=== PATIENT | female | born 1940 | race Caucasian/White ===

== ENCOUNTER → 2017-09-15 | Outpatient (CLI) | payer OTHER ==
[~2017-09-15] MED LIST: ASPCH81X PO; DVN/160 PO; METO25TA56 PO; MOME100A INH; OXYC10SO PO; SIMV10TA5 PO; [UNRECOGNIZED DRUG - OTHER] PO
--- NOTE | 2017-09-16 05:20 | PAP/PSG TECHNICIAN REPORT ---
[facility] Power Reactor Supervisor Polysomnogram Report Study name: None Report date: 09/16/2017 Study date: 09/15/2017 Referring Physician: Amelia Mariee Name: LISA OCHOA Interpreting Physician: Moises Chapman M.D. Date of : 1940 Power Reactor Supervisor: Kanchan Olmos [facility]. Sex: Female Age: 77 StudyType: PSG Weight: 236 lbs Height: 77 years, Height 5' 4" Neck Circum:16.5inches BMI: 40.5 Medications: Proventil HFA 108mcg/act, ASA 81mg, Excederine Migraine, Azelastine HCl 0.1%nasal spray, Benadryl 25mg, Claritin 10mg, Toprol XL 50mg, Dulera 100-5 mcg/act, Nasonex 50mcg/act, Potassium Chloride ER 10MEQ, Zocor 10mg, Valsartan 320mg Patient History Study started on room air with no ETCO2 monitoring in room #6. 77 yr old female here tonight for a possible split psg if her AHI>15 and she has 2 hours of sleep by 1:30am.She has HTN. She snores but has no witnessed apnea. When she wakes up during the night she has difficulty falling back to sleep. Her Ess=9/24. Neck circ=16.5inches. Parameters Monitored NPSG: E1-M2, E2-M1, Fp1-M2, Fp2-M1, F3-M2, F4-M2, F4-M1, C3-M2, C4-M2, C4-M1, O1-M2, O2-M2, O2-M1, T3-M2, T4-M1, P3-M2, P4-M1, CHIN1, CHIN2, HR, EKG, Legs, PFLOW, SNOR, FLOW, CFLOW, Tidal Volume, THOR, ABDO, SpO2, PLTH, CPRESS, ETCO2 Wave, ETCO2, pH Sleep Architecture Sleep Stages Time at Lights Off 10:27:36 PM STAGES Time (min.) TST (%) Time at Lights On 5:09:06 AM Wake 245.0 -- Total Recording Time (TRT) 395.00 min. N1 22.5 15 Total Sleep Period (TSP) 328.0 min. N2 75.5 50 Total Sleep Time (TST) 150.0min. N3 30.5 20 Awake Time 245.0 min. REM 21.5 14 Wake after Sleep Onset 212.0 min. Sleep Efficiency (SE) 38 % Sleep Onset Latency (OH) 39.5 min. Number of Stage 1 Shifts None Awakenings 27 Stage Changes 103 Number of REM periods 1 REM 21.5 14 REM Latency 299.5 min. NREM 128.5 86 Body Position Analysis Supine Right Left Side Prone Vertical Total Sleep Time (min.) 17.7 114.5 35.5 150.00 0.0 0.0 Total Sleep Time (%) 0% 76% 24% 100 0% N/A% Total Sleep Time REM (min.) 0.0 21.5 0.0 None 0.0 0.0 Total Sleep Time NREM (min.) 0.0 93.0 35.5 None 0.0 0.0 Intermittent Wake (min.) 17.7 149.2 78.1 None 0.0 0.0 Total Sleep Period (%) 0% None None None None None Arousals Myoclonus (PLM) * Events Count Index Events Count Index Spontaneous 8 3 Events Awake (PLMW) 382 93.6 Respiratory 40 18.0 Events Asleep w/ Arousal (PLMA) 13 5.2 PLM 12 5 Events Asleep w/o Arousal (PLMS) 153 61.2 Snoring 5 2 Total Asleep 166 66.4 Total 65 26 Total 548 83 Respiratory Analysis * CA OA MA CH H RERA Total Count 1 41 1 0 82 0 125 Index 0.4 16.4 0.4 0 32.8 0 50.0 Mean Duration 28.7 19.1 25.5 0.00 19.5 0.0 19.5 Longest Duration 28.7 28.6 25.5 0.00 25.5 0.0 50.4 Respiratory Event Summary Total Supine ~Supine Right Left Prone REM NREM Apneas Count 43 N/A 43 30 13 N/A 16 27 Index 17.2 N/A 17 15.7 22.0 N/A 45 13 Hypopneas (4% Desat) Count 82 N/A 82 64 18 N/A 6 76 Index 32.8 N/A 33 33.5 30.4 N/A 16.7 35.5 Apneas & All Hypopneas Count 125 N/A 125 94 31 N/A 22 103 Index 50.0 N/A 50 49 52 N/A 61.4 48.1 Respiratory Events (Hydraulic Chair Assembler+All Hyp+RERA) Count 125 N/A 125 94 31 N/A 22 103 Index 50.0 N/A 50 49.3 52.4 N/A 61.4 48.1 Respiratory Related Arousal Count 40 N/A 45 24 21 N/A 0 45 Index 18.0 N/A 18 13 35 N/A 0 21 Snoring Analysis Supine Right Left Prone REM NREM Total Snore duration 26.4 min Snores count N/A 911 37 N/A 232 716 948 Snore mean duration 1.7 Sec Snores index N/A 477 63 N/A 647.4 334.3 379.2 TST with snoring (%) 17.6% Desaturation Event Summary: Minimum %SpO2 Event Count Mean/Min/Max Duration(sec.) Desaturation Index % Time In Bed > 90 168 26.0 / 5.3 / 59.8 42.4 63.4 86 - 90 71 21.3 / 5.3 / 53.5 36.8 30.8 81 - 85 13 20.4 / 8.5 / 36.5 63.2 3.3 76 - 80 6 17.8 / 11.3 / 26.0 53.4 1.8 71 - 75 0 N/A 0.0 0.7 66 - 70 0 N/A 0.0 0.0 61 - 65 0 N/A 0.0 0.0 56 - 60 0 N/A 0.0 0.0 51 - 55 0 N/A 0.0 0.0 < 50 0 N/A 0.0 0.0 Total REM NREM Awake <50% 0.0 min. 0.0 min. 0.0 min. 0.0 min. 51 - 60% 0.0 min. 0.0 min. 0.0 min. 0.0 min. 61 - 70% 0.1 min. 0.1 min. 0.0 min. 0.0 min. 71 - 80% 9.2 min. 8.8 min. 0.4 min. 0.1 min. 81 - 90% 128.1 min. 10.6 min. 76.8 min. 40.7 min. 91 - 100% 237.9 min. 1.9 min. 51.1 min. 184.9 min. Average 91 82 90 92 Minimum SpO2 70 70 79 75 Desaturation Event Index 31.0 53.0 57.0 15.7 # Desat. Events below 89% 143 19 95 29 Time(%) with Saturation below 89% 19.2 4.7 11.3 3.2 Time(min.) with Saturation below 89% 72.0 17.6 42.5 11.9 Time (mins) REM (mins) NREM (mins) % of TST SpO2 Below 90% 135 19 N116 53.5 SpO2 Below 88% 43 0 0 30 Heart Rate Analysis Min (bpm) Max (bpm) Average (bpm) Awake 45 281 67 NREM 55 75 66 REM 60 78 72 Overall 55 78 67 Supplemental O2 Values Minimum O2 level: None Value Start Time End Time Power Reactor Supervisor Comments Mrs. Ochoa slept in the right and left positions. No cardiac arrhythmia noted. Some leg movements noted. No bruxism noted. Snoring was noted and scored as a 2 on a scale of 1 through 5. (0=no snoring, 5=snoring loud enough to be heard through a closed door or down the cain way). She awoke to use the restroom 2 times during the night. She stated that she slept a little worse than when at home. Coughing woke her up. The final report will be interpreted and signed by a sleep physician. The completed physician report will then be placed in the patient medical record. Therapy (cm H2O) 0 TIB (min.) 395.0 TST (min.) 150.0 Sleep Onset (min.) 39.5 REM Onset From Sleep (min.) 299.5 Sleep Efficiency % 38 Wakefulness (%) 61 Wakefulness (min.) 245.0 NREM 1 (%) 15 NREM 1 (min.) 22.5 NREM 2 (%) 50 NREM 2 (min.) 75.5 NREM 3 (%) 20 NREM 3 (min.) 30.5 REM (%) 14 REM (min.) 21.5 # Arousals 65 Arousal Index 26 # Snore 948 Snore Index 379.2 AHI 50.0 AHI Supine N/A AHI Non-Supine 50 NREM AHI 48.1 REM AHI 61.4 RDI 50.0 # Obstructive Apnea 41 # Central Apnea 1 # Mixed Apnea 1 # Hypopneas 82 RERAs 0 Total Respiratory Events 137 Time Below SpO2 89% (min.) 60.2 Mean NREM SpO2 (%) 90 Mean REM SpO2 (%) 82 Mean Sleep SpO2 (%) 89 Min NREM SpO2 (%) 79 Min REM SpO2 (%) 70 Position Supine (min.) 17.7 Position Non-supine (min.) 150.0 LM Index Sleep 66.4 LM Index NREM 71.4 LM Index REM 36.3 Mean Heart Rate (bpm) 67 Min Heart Rate (bpm) 55
--- NOTE | 2017-09-16 05:27 | PAP/PSG TECHNICIAN REPORT ---
[facility] Licensed Veterinary Technician Polysomnogram Report Study name: None Report date: 09/16/2017 Study date: 09/15/2017 Referring Physician: Amelia Mariee Name: LISA OCHOA Interpreting Physician: Moises Chapman M.D. Date of : 1940 Licensed Veterinary Technician: Kanchan Olmos [facility]. Sex: Female Age: 77 StudyType: PSG Weight: 236 lbs Height: 77 years, Height 5' 4" Neck Circum:16.5inches BMI: 40.5 Medications: Proventil HFA 108mcg/act, ASA 81mg, Excederine Migraine, Azelastine HCl 0.1%nasal spray, Benadryl 25mg, Claritin 10mg, Toprol XL 50mg, Dulera 100-5 mcg/act, Nasonex 50mcg/act, Potassium Chloride ER 10MEQ, Zocor 10mg, Valsartan 320mg Patient History Study started on room air with no ETCO2 monitoring in room #6. 77 yr old female here tonight for a possible split psg if her AHI>15 and she has 2 hours of sleep by 1:30am.She has HTN. She snores but has no witnessed apnea. When she wakes up during the night she has difficulty falling back to sleep. Her Ess=9/24. Neck circ=16.5inches. Parameters Monitored NPSG: E1-M2, E2-M1, Fp1-M2, Fp2-M1, F3-M2, F4-M2, F4-M1, C3-M2, C4-M2, C4-M1, O1-M2, O2-M2, O2-M1, T3-M2, T4-M1, P3-M2, P4-M1, CHIN1, CHIN2, HR, EKG, Legs, PFLOW, SNOR, FLOW, CFLOW, Tidal Volume, THOR, ABDO, SpO2, PLTH, CPRESS, ETCO2 Wave, ETCO2, pH Sleep Architecture Sleep Stages Time at Lights Off 10:27:36 PM STAGES Time (min.) TST (%) Time at Lights On 5:09:06 AM Wake 251.5 -- Total Recording Time (TRT) 401.50 min. N1 22.5 15 Total Sleep Period (TSP) 328.0 min. N2 75.5 50 Total Sleep Time (TST) 150.0min. N3 30.5 20 Awake Time 251.5 min. REM 21.5 14 Wake after Sleep Onset 212.0 min. Sleep Efficiency (SE) 37 % Sleep Onset Latency (OH) 39.5 min. Number of Stage 1 Shifts None Awakenings 27 Stage Changes 102 Number of REM periods 1 REM 21.5 14 REM Latency 299.5 min. NREM 128.5 86 Body Position Analysis Supine Right Left Side Prone Vertical Total Sleep Time (min.) 17.7 114.5 35.5 150.00 0.0 0.0 Total Sleep Time (%) 0% 76% 24% 100 0% N/A% Total Sleep Time REM (min.) 0.0 21.5 0.0 None 0.0 0.0 Total Sleep Time NREM (min.) 0.0 93.0 35.5 None 0.0 0.0 Intermittent Wake (min.) 17.7 155.7 78.1 None 0.0 0.0 Total Sleep Period (%) 0% None None None None None Arousals Myoclonus (PLM) * Events Count Index Events Count Index Spontaneous 8 3 Events Awake (PLMW) 386 92.1 Respiratory 40 18.0 Events Asleep w/ Arousal (PLMA) 13 5.2 PLM 12 5 Events Asleep w/o Arousal (PLMS) 153 61.2 Snoring 5 2 Total Asleep 166 66.4 Total 65 26 Total 552 82 Respiratory Analysis * CA OA MA CH H RERA Total Count 1 41 1 0 82 0 125 Index 0.4 16.4 0.4 0 32.8 0 50.0 Mean Duration 28.7 19.1 25.5 0.00 19.5 0.0 19.5 Longest Duration 28.7 28.6 25.5 0.00 25.5 0.0 50.4 Respiratory Event Summary Total Supine ~Supine Right Left Prone REM NREM Apneas Count 43 N/A 43 30 13 N/A 16 27 Index 17.2 N/A 17 15.7 22.0 N/A 45 13 Hypopneas (4% Desat) Count 82 N/A 82 64 18 N/A 6 76 Index 32.8 N/A 33 33.5 30.4 N/A 16.7 35.5 Apneas & All Hypopneas Count 125 N/A 125 94 31 N/A 22 103 Index 50.0 N/A 50 49 52 N/A 61.4 48.1 Respiratory Events (Autocad Draftsman+All Hyp+RERA) Count 125 N/A 125 94 31 N/A 22 103 Index 50.0 N/A 50 49.3 52.4 N/A 61.4 48.1 Respiratory Related Arousal Count 40 N/A 45 24 21 N/A 0 45 Index 18.0 N/A 18 13 35 N/A 0 21 Snoring Analysis Supine Right Left Prone REM NREM Total Snore duration 26.4 min Snores count N/A 911 37 N/A 232 716 948 Snore mean duration 1.7 Sec Snores index N/A 477 63 N/A 647.4 334.3 379.2 TST with snoring (%) 17.6% Desaturation Event Summary: Minimum %SpO2 Event Count Mean/Min/Max Duration(sec.) Desaturation Index % Time In Bed > 90 168 26.0 / 5.3 / 59.8 41.8 63.7 86 - 90 71 21.3 / 5.3 / 53.5 36.8 30.6 81 - 85 13 20.4 / 8.5 / 36.5 63.2 3.3 76 - 80 6 17.8 / 11.3 / 26.0 53.4 1.8 71 - 75 0 N/A 0.0 0.7 66 - 70 0 N/A 0.0 0.0 61 - 65 0 N/A 0.0 0.0 56 - 60 0 N/A 0.0 0.0 51 - 55 0 N/A 0.0 0.0 < 50 0 N/A 0.0 0.0 Total REM NREM Awake <50% 0.0 min. 0.0 min. 0.0 min. 0.0 min. 51 - 60% 0.0 min. 0.0 min. 0.0 min. 0.0 min. 61 - 70% 0.1 min. 0.1 min. 0.0 min. 0.0 min. 71 - 80% 9.2 min. 8.8 min. 0.4 min. 0.1 min. 81 - 90% 128.1 min. 10.6 min. 76.8 min. 40.7 min. 91 - 100% 241.4 min. 1.9 min. 51.1 min. 188.3 min. Average 91 82 90 92 Minimum SpO2 70 70 79 75 Desaturation Event Index 30.5 53.0 57.0 15.3 # Desat. Events below 89% 143 19 95 29 Time(%) with Saturation below 89% 19.0 4.7 11.2 3.1 Time(min.) with Saturation below 89% 72.0 17.6 42.5 11.9 Time (mins) REM (mins) NREM (mins) % of TST SpO2 Below 90% 135 19 N116 53.5 SpO2 Below 88% 43 0 0 30 Heart Rate Analysis Min (bpm) Max (bpm) Average (bpm) Awake 45 281 67 NREM 55 75 66 REM 60 78 72 Overall 55 78 67 Supplemental O2 Values Minimum O2 level: None Value Start Time End Time Licensed Veterinary Technician Comments Mrs. Ochoa slept in the right and left positions. No cardiac arrhythmia noted. Some leg movements noted. No bruxism noted. Snoring was noted and scored as a 2 on a scale of 1 through 5. (0=no snoring, 5=snoring loud enough to be heard through a closed door or down the cain way). She awoke to use the restroom 2 times during the night. She stated that she slept a little worse than when at home.. The final report will be interpreted and signed by a sleep physician. The completed physician report will then be placed in the patient medical record. Therapy (cm H2O) 0 TIB (min.) 401.5 TST (min.) 150.0 Sleep Onset (min.) 39.5 REM Onset From Sleep (min.) 299.5 Sleep Efficiency % 37 Wakefulness (%) 63 Wakefulness (min.) 251.5 NREM 1 (%) 15 NREM 1 (min.) 22.5 NREM 2 (%) 50 NREM 2 (min.) 75.5 NREM 3 (%) 20 NREM 3 (min.) 30.5 REM (%) 14 REM (min.) 21.5 # Arousals 65 Arousal Index 26 # Snore 948 Snore Index 379.2 AHI 50.0 AHI Supine N/A AHI Non-Supine 50 NREM AHI 48.1 REM AHI 61.4 RDI 50.0 # Obstructive Apnea 41 # Central Apnea 1 # Mixed Apnea 1 # Hypopneas 82 RERAs 0 Total Respiratory Events 137 Time Below SpO2 89% (min.) 60.2 Mean NREM SpO2 (%) 90 Mean REM SpO2 (%) 82 Mean Sleep SpO2 (%) 89 Min NREM SpO2 (%) 79 Min REM SpO2 (%) 70 Position Supine (min.) 17.7 Position Non-supine (min.) 150.0 LM Index Sleep 66.4 LM Index NREM 71.4 LM Index REM 36.3 Mean Heart Rate (bpm) 67 Min Heart Rate (bpm) 55
--- NOTE | 2017-09-16 16:39 | POLYSOMNOGRAPH REPORT ---
CLINICAL DATA: A 77-year-old female with BMI of 40.5 referred by Amelia Mariee for possible split night sleep study. The patient has snoring but no witnessed apnea. She wakes up at night and has difficulty falling back to sleep. SLEEP ARCHITECTURE: Total sleep period was 328 minutes. Total sleep time was 150 minutes divided between 128.5 minutes of non-REM sleep and 21.5 minutes of REM sleep. Sleep latency was delayed at 39.5 minutes. REM latency was delayed at 299.5 minutes. Sleep efficiency was reduced at 37%. Wake after sleep onset was elevated at 212 minutes. Sleep consisted of stage N1 15%, stage N2 50%, stage N3 20%, and REM 14%. AROUSAL DATA: 65 arousals were recorded for an index of 26 per hour. 40 were due to respiratory events. PLM DATA: Significantly elevated limb movements during sleep were noted. There were 166 limb movements in sleep noted for an index of 66 per hour with an arousal index of 5 per hour. RESPIRATORY DATA: Severe sleep apnea was documented. The AHI was 50. There was 1 central, 41 obstructive, and 1 mixed apneic episode. The longest apneic episode was 28.7 seconds. There were 82 hypopneic episodes. The longest hypopneic episode was 25.5 seconds. OXIMETRY DATA: Nocturnal hypoxemia was seen. Oxygen pauline was 70% during REM. Mean saturation was 91%. Time below 88% was 43 minutes. EKG: Heart rates ranged from 55-78 beats per minute. No arrhythmias were noted. FINANCE ASSOCIATE'S COMMENTS: The patient slept in the right and left position. Snoring was mild, rated 2 on a scale of 1-5. The patient did not achieve an adequate AHI soon enough in the study to convert to a split night study. IMPRESSION: Severe sleep apnea/hypopnea with an AHI of 50 with nocturnal hypoxemia. However, the patient did have limited amounts sleep and was awake for a large portion of the night. RECOMMENDATIONS: The patient may benefit from a repeat sleep study with CPAP with use of a sleep medication such as zolpidem 10 mg or Lunesta 3 mg on the night of the sleep study. MTDD
== END | disposition home or self-care (01) ==
LOC: C.NEUR 20:00
PROVIDERS: ATTEND Nurse Practitioner Family
DX: J45.30 Mild persistent asthma, uncomplicated (principal); R06.83 Snoring; I10 Essential (primary) hypertension; G47.10 Hypersomnia, unspecified

== ENCOUNTER → 2017-09-30 | Outpatient (CLI) | payer OTHER ==
--- NOTE | 2017-10-01 05:55 | PAP/PSG TECHNICIAN REPORT ---
[facility] Rubber Stamp Dies Inspector Polysomnogram Report Study name: None Report date: 10/01/2017 Study date: 09/30/2017 Referring Physician: Amelia Mraiee Name: LISA OCHOA Interpreting Physician: Moises Chapman M.D. Date of : 1940 Rubber Stamp Dies Inspector: Shamika Florez [facility]. Sex: Female Age: 77 StudyType: PSG PAP Weight: 236 lbs Height: 77 years, Height 5' 4" Neck Circum: 16.5 inches BMI: 40.5 Medications: Proventil HFA 108mcg/act, ASA 81mg, Excedrin Migraine, Azelastine HCl 0.1%nasal spray, Benadryl 25mg, Claritin 10mg, Toprol XL 50mg, Dulera 100-5 mcg/act, Nasonex 50mcg/act, Potassium Chloride ER 10MEQ, Zocor 10mg, Valsartan 320mg Patient History 77 yr. old female here for a new titration sleep study. Patients PSG was don on 09/15/17 and had an AHI of 50.0 with 150 minutes of sleep. ESS 03/22 Neck 16.5 inches Parameters Monitored NPSG: E1-M2, E2-M1, Fp1-M2, Fp2-M1, F3-M2, F4-M2, F4-M1, C3-M2, C4-M2, C4-M1, O1-M2, O2-M2, O2-M1, T3-M2, T4-M1, P3-M2, P4-M1, CHIN1, CHIN2, HR, EKG, Legs, PFLOW, SNOR, FLOW, CFLOW, Tidal Volume, THOR, ABDO, SpO2, PLTH, CPRESS, ETCO2 Wave, ETCO2, pH Sleep Architecture Sleep Stages Time at Lights Off 9:51:41 PM STAGES Time (min.) TST (%) Time at Lights On 5:45:11 AM Wake 199.5 -- Total Recording Time (TRT) 473.50 min. N1 65.5 24 Total Sleep Period (TSP) 437.5 min. N2 132.5 48 Total Sleep Time (TST) 273.5min. N3 46.5 17 Awake Time 199.5 min. REM 29.0 11 Wake after Sleep Onset 164.0 min. Sleep Efficiency (SE) 58 % Sleep Onset Latency (OH) 36.0 min. Number of Stage 1 Shifts None Awakenings 40 Stage Changes 133 Number of REM periods 2 REM 29.0 11 REM Latency 121.5 min. NREM 244.5 89 Body Position Analysis Supine Right Left Side Prone Vertical Total Sleep Time (min.) 23.7 84.5 184.2 268.73 0.0 3.5 Total Sleep Time (%) 2% 31% 67% 98 0% N/A% Total Sleep Time REM (min.) 0.0 0.0 29.0 None 0.0 0.0 Total Sleep Time NREM (min.) 4.8 84.5 155.2 None 0.0 0.0 Intermittent Wake (min.) 19.0 56.1 120.9 None 0.0 3.5 Total Sleep Period (%) 6% None None None None None Arousals Myoclonus (PLM) * Events Count Index Events Count Index Spontaneous 5 1 Events Awake (PLMW) 249 74.9 Respiratory 25 7.0 Events Asleep w/ Arousal (PLMA) 25 5.5 PLM 24 5 Events Asleep w/o Arousal (PLMS) 232 50.9 Snoring 8 2 Total Asleep 257 56.4 Total 61 13 Total 506 64 Respiratory Analysis * CA OA MA CH H RERA Total Count 1 14 0 0 81 3 97 Index 0.2 3.1 0.0 0 17.8 1 21.7 Mean Duration 7.8 21.7 0.0 21.68 23.5 32.9 23.4 Longest Duration 7.8 29.6 0.0 21.68 0.0 40.7 65.8 Respiratory Event Summary Total Supine ~Supine Right Left Prone REM NREM Apneas Count 15 0 15 12 3 N/A 1 14 Index 3.3 0 3 8.5 1.0 N/A 2 3 Hypopneas (4% Desat) Count 81 0 81 47 34 N/A 2 79 Index 17.8 0.0 18 33.4 11.1 N/A 4.1 19.4 Apneas & All Hypopneas Count 97 0 97 60 37 N/A 3 94 Index 21.3 0 22 43 12 N/A 6.2 23.1 Respiratory Events (Bander And Cellophaner Helper Machine+All Hyp+RERA) Count 97 0 99 60 39 N/A 3 94 Index 21.7 0 22 42.6 12.7 N/A 6.2 23.6 Respiratory Related Arousal Count 25 0 32 24 8 N/A 0 32 Index 7.0 0 7 17 3 N/A 0 8 Snoring Analysis Supine Right Left Prone REM NREM Total Snore duration 4.4 min Snores count 2 52 65 N/A 11 108 119 Snore mean duration 2.2 Sec Snores index 25 37 21 N/A 22.8 26.5 26.1 TST with snoring (%) 1.6% Desaturation Event Summary: Minimum %SpO2 Event Count Mean/Min/Max Duration(sec.) Desaturation Index % Time In Bed > 90 105 28.7 / 9.0 / 60.0 14.6 94.7 86 - 90 0 N/A 0.0 5.2 81 - 85 0 N/A 0.0 0.1 76 - 80 0 N/A 0.0 0.0 71 - 75 0 N/A 0.0 0.0 66 - 70 0 N/A 0.0 0.0 61 - 65 0 N/A 0.0 0.0 56 - 60 0 N/A 0.0 0.0 51 - 55 0 N/A 0.0 0.0 < 50 0 N/A 0.0 0.0 Total REM NREM Awake <50% 0.0 min. 0.0 min. 0.0 min. 0.0 min. 51 - 60% 0.0 min. 0.0 min. 0.0 min. 0.0 min. 61 - 70% 0.0 min. 0.0 min. 0.0 min. 0.0 min. 71 - 80% 0.0 min. 0.0 min. 0.0 min. 0.0 min. 81 - 90% 24.2 min. 2.1 min. 19.7 min. 2.4 min. 91 - 100% 432.6 min. 26.9 min. 224.7 min. 181.0 min. Average 94 92 93 95 Minimum SpO2 82 89 88 82 Desaturation Event Index 13.3 4.1 19.4 7.2 # Desat. Events below 89% 6 N/A 4 2 Time(%) with Saturation below 89% 0.3 0.0 0.1 0.2 Time(min.) with Saturation below 89% 1.4 0.0 0.5 1.0 Time (mins) REM (mins) NREM (mins) % of TST SpO2 Below 90% 49 2 N47 2.5 SpO2 Below 88% 2 0 0 0 Heart Rate Analysis Min (bpm) Max (bpm) Average (bpm) Awake 48 155 64 NREM 52 95 61 REM 56 70 62 Overall 52 95 62 Supplemental O2 Values Minimum O2 level: None Value Start Time End Time Rubber Stamp Dies Inspector Comments MS. Ochoa slept in the right, left, and supine positions. Cardiac arrhythmia and PLMs noted. No bruxism noted. CPAP was initiated at +4 CMH2O room air and up-titrated to a level of +15 CMH2O room air Cflex 1. A Medium ResMed Quattro Air, was used during titration. MS. Ochoa awoke to use the restroom two times during the night. MS. Ochoa stated, the pressure was high at the end. The final report will be interpreted and signed by a sleep physician. The completed physician report will then be placed in the patient medical record. Therapy Event: Therapy (cm H20) 4 6 7 8 9 10 Total Time at Pressure (min.) 88.1 47.4 14.8 95.9 7.0 14.2 TST at Pressure (min.) 24.2 26.4 14.8 43.4 6.0 13.2 # Periods 1 1 1 1 1 1 Sleep Onset (min.) 35.9 0.0 0.0 0.0 0.0 0.0 REM Onset (min.) N/A N/A N/A 7.1 N/A N/A Sleep Efficiency % 27 55 100 45 85 92 Wakefulness (%) 72.6 44.3 0.0 54.7 14.3 7.1 Wakefulness (min.) 63.9 21.0 0.0 52.5 1.0 1.0 NREM 1 (%) 17.0 17.9 0.0 13.0 18.7 8.4 NREM 1 (min.) 15.0 8.5 0.0 12.5 1.3 1.2 NREM 2 (%) 10.4 37.7 59.6 17.1 67.0 81.3 NREM 2 (min.) 9.2 17.9 8.8 16.4 4.7 11.5 NREM 3 (%) 0.0 0.0 40.4 0.5 0.0 3.2 NREM 3 (min.) 0.0 0.0 6.0 0.5 0.0 0.5 REM (%) 0.0 0.0 0.0 14.6 0.0 0.0 REM (min.) 0.0 0.0 0.0 14.0 0.0 0.0 # Arousals 6 6 2 11 4 8 Arousal Index 14.9 13.7 8.1 15.2 40.1 36.5 # Snore 9 17 22 25 16 8 Snore Index 22.3 38.7 88.9 34.5 160.6 36.5 AHI 34.8 27.3 12.1 22.1 80.3 59.3 AHI Supine N/A N/A N/A N/A N/A N/A AHI Non-Supine 34.8 27.3 12.1 22.1 80.3 59.3 NREM AHI 34.8 27.3 12.1 32.6 80.3 59.3 REM AHI N/A N/A N/A 0.0 N/A N/A RDI 34.8 29.6 12.1 22.1 80.3 59.3 # Obstructive 2 2 0 5 3 1 # Central Ap 0 0 0 0 0 0 # Mixed 0 0 0 0 0 0 # Hypopneas 12 10 3 11 4 12 RERAS 0 1 0 0 1 0 Total Respiratory Events 14 13 3 16 8 13 Time Below SpO2 89.00% (min.) 0.0 0.0 0.0 0.1 0.3 0.0 Mean NREM SpO2 (%) 94 94 93 94 93 93 Mean REM SpO2 (%) N/A N/A N/A 93 N/A N/A Mean Sleep SpO2 (%) 94 94 93 94 93 93 Min NREM SpO2 (%) 89 89 90 88 88 88 Min REM SpO2 (%) N/A N/A N/A 91 N/A N/A Position Supine (min.) 0.0 0.0 0.0 0.0 0.0 0.0 Position Non-supine (min.) 24.2 26.4 14.8 43.4 6.0 13.2 LM Index Sleep 19.9 43.2 40.4 59.4 110.4 104.9 LM Index NREM 19.9 43.2 40.4 81.5 110.4 104.9 LM Index REM N/A N/A N/A 12.9 N/A N/A Mean Heart Rate (bpm) 64 64 64 64 62 63 Min Heart Rate (bpm) 60 58 54 56 54 54 Therapy (cm H20) 11 12 13 14 15 Total Time at Pressure (min.) 9.0 90.2 46.5 22.2 37.6 TST at Pressure (min.) 9.0 74.7 17.4 7.9 36.6 # Periods 1 1 1 1 1 Sleep Onset (min.) 0.0 0.0 0.0 2.3 0.0 REM Onset (min.) N/A 78.0 0.0 N/A N/A Sleep Efficiency % 100 82 37 35 97 Wakefulness (%) 0.0 17.2 62.7 64.5 2.7 Wakefulness (min.) 0.0 15.5 29.2 14.3 1.0 NREM 1 (%) 0.0 10.0 18.3 31.0 7.0 NREM 1 (min.) 0.0 9.0 8.5 6.9 2.6 NREM 2 (%) 61.1 37.7 12.9 4.5 46.5 NREM 2 (min.) 5.5 34.0 6.0 1.0 17.5 NREM 3 (%) 38.9 21.7 0.0 0.0 43.9 NREM 3 (min.) 3.5 19.5 0.0 0.0 16.5 REM (%) 0.0 13.5 6.1 0.0 0.0 REM (min.) 0.0 12.1 2.9 0.0 0.0 # Arousals 4 12 4 2 2 Arousal Index 26.6 9.6 13.8 15.2 3.3 # Snore 5 8 6 2 1 Snore Index 33.3 6.4 20.7 15.2 1.6 AHI 26.6 10.4 27.7 22.8 4.9 AHI Supine N/A N/A 0.0 N/A N/A AHI Non-Supine 26.6 10.4 38.1 22.8 4.9 NREM AHI 26.6 9.6 33.1 22.8 4.9 REM AHI N/A 14.8 0.0 N/A N/A RDI 26.6 11.2 27.7 22.8 4.9 # Obstructive 0 0 1 0 0 # Central Ap 0 1 0 0 0 # Mixed 0 0 0 0 0 # Hypopneas 4 12 7 3 3 RERAS 0 1 0 0 0 Total Respiratory Events 4 14 8 3 3 Time Below SpO2 89.00% (min.) 0.0 0.0 0.0 0.0 0.0 Mean NREM SpO2 (%) 91 93 93 94 94 Mean REM SpO2 (%) N/A 92 92 N/A N/A Mean Sleep SpO2 (%) 91 93 93 94 94 Min NREM SpO2 (%) 89 90 88 89 91 Min REM SpO2 (%) N/A 90 89 N/A N/A Position Supine (min.) 0.0 0.0 4.8 0.0 0.0 Position Non-supine (min.) 9.0 74.7 12.6 7.9 36.6 LM Index Sleep 66.6 54.6 34.6 60.9 77.0 LM Index NREM 66.6 60.4 37.2 60.9 77.0 LM Index REM N/A 24.7 21.0 N/A N/A Mean Heart Rate (bpm) 64 60 59 59 58 Min Heart Rate (bpm) 55 52 54 56 52
--- NOTE | 2017-10-01 20:02 | POLYSOMNOGRAPH REPORT ---
CLINICAL DATA: A 77-year-old female with BMI of 40.5, referred by JOSE Rodriguez, for a titration study. Her baseline sleep study was done on 09/15/2017 and showed severe sleep apnea with an AHI of 50. SLEEP ARCHITECTURE: Total sleep period was 437.5 minutes. Total sleep time was 273.5 minutes divided between 244.5 minutes of non-REM sleep and 29 minutes of REM sleep. Sleep latency was delayed at 36 minutes. REM latency was 121.5 minutes. Sleep efficiency was 58%. Wake after sleep onset was elevated at 164 minutes. Sleep consisted of stage N1 24%, stage N2 48%, stage N3 17% and REM 11%. AROUSAL DATA: 61 arousals recorded for an index of 13 per hour. PERIODIC LIMB MOVEMENT DATA: Severe PLMD was noted. There were 257 limb movements during sleep noted for an index of 56.4 per hour with arousal index of 5.5 per hour. RESPIRATORY DATA: The AHI was 21.3. The RDI was 21.7. There was 1 central and 14 obstructive apneic episodes. The longest duration of apnea was 29.6 seconds. There were 81 hypopneic episodes with mean duration of 23.5 seconds. There were 3 RERAs. The longest RERA was 40.7 seconds. OXIMETRY DATA: Transient hypoxemia was seen. Oxygen pauline was 88%. Mean saturation was 94%. EKG: Heart rates ranged from 52-95 beats per minute. PVCs were noted. EXPLOSIVE ORDNANCE HANDLER'S COMMENTS: The patient slept in the right, left and supine position. The patient used the medium ResMed Quattro Air full facemask. She was titrated up to 15 cm water pressure, C-Flex setting 1. At her final pressure setting, she slept for 36.6 minutes with an AHI of 4.9. IMPRESSION: Severe obstructive sleep apnea corrected with CPAP 15 cm water pressure, C-Flex setting 1 with a medium ResMed Quattro Air facemask. The patient also had significant PLMD which continued in spite of CPAP therapy. RECOMMENDATIONS: The patient should be started on CPAP at the above-noted settings. She should be seen back in followup within 90 days to document efficacy and compliance. If she continues to have sleep symptoms in spite of adequate treatment with CPAP, evaluation and treatment for RLS/PLMD may be of benefit. [facility] HOSPITALAisha
== END | disposition home or self-care (01) ==
LOC: C.NEUR 20:00
PROVIDERS: ATTEND Nurse Practitioner Family
DX: G47.33 Obstructive sleep apnea (adult) (pediatric) (principal); R09.02 Hypoxemia

== ENCOUNTER 2020-12-22 15:43 | Observation (INO) ==
[2020-12-22 16:45] LABS: Basophils # (auto) 0.02 K/uL (0-0.2); Basophils % (auto) 0.2 %; Eosinophils # (auto) 0.07 K/uL (0-0.5); Eosinophils % (auto) 0.8 %; Hematocrit (blood only) 43.4 % (37-47); Hemoglobin 14.6 g/dL (12.0-16.0); Immature Granulocytes # (auto) 0.04 K/uL (0.00-0.02); Immature Granulocytes % (auto) 0.5 %; Lymphocytes # (auto) 0.81 K/uL (1.2-3.4); Lymphocytes % (auto) 9.3 %; Mean Corpuscular Hemoglobin 30.9 pg (25-34); Mean Corpuscular Hgb Conc 33.6 g/dL (32-36); Mean Corpuscular Volume 91.8 fL (80-100); Mean Platelet Volume 10.7 fL (7.4-10.4); Monocytes # (auto) 0.44 K/uL (0.11-0.59); Monocytes % (auto) 5.1 %; Neutrophils # (auto) 7.31 K/uL (1.4-6.5); Neutrophils % (auto) 84.1 %; Platelet Count 179 K/uL (130-400); RDW Coefficient of Variation 13.7 % (11.5-14.5); Red Blood Count 4.73 M/uL (4.2-5.4); White Blood Count 8.69 K/uL (4.8-10.8)
[2020-12-22 17:03] LABS: Alanine Aminotransferase 17 U/L (12-78); Albumin Level 3.7 gm/dl (3.4-5.0); Aspartate Aminotransferase 15 U/L (15-37); Blood Urea Nitrogen 27 mg/dl (7-18); Calcium 9.3 mg/dl (8.5-10.1); Carbon Dioxide 28 mmol/L (21-32); Chloride 106 mmol/L (98-107); Est GFR (African American) 46.8 ml/min; Est GFR (Non-African American) 40.4 ml/min; Glucose 116 mg/dl (70-99); Potassium 3.8 mmol/L (3.5-5.1); Sodium 140 mmol/L (136-145)
[2020-12-22 17:13] LABS: Alkaline Phosphatase 98 U/L (45-117); Bilirubin,Total 0.5 mg/dl (0.2-1); Creatine Kinase 74 U/L (26-192); Creatine Kinase MB 1.1 ng/ml (0.5-3.6); Globulin 3.6 gm/dl (2.5-4.0); Total Protein 7.3 gm/dl (6.4-8.2); Troponin I < 0.015 ng/ml (0-0.045)
--- NOTE | 2020-12-22 17:17 | XRay Report ---
XR chest 2V PA/lateral CLINICAL HISTORY: syncope COMPARISON STUDY: 11/30/2014 FINDINGS: The heart is borderline enlarged. Normal. There is no evidence of focal pulmonary consolida tion. There is no evidence of failure. No pleural effusions are visualized.[Degenerative changes are present within the dorsal spine. There is minor atelectasis at the level of the left cardiophrenic an gle IMPRESSION: No active disease in the chest. ACT 112: Negative or not required by law. Electronically signed by: Lewis Pollock M.D. 12/22/2020 5:16 PM
--- NOTE | 2020-12-22 17:51 | Emergency Department Note ---
History of Present Illness General Chief complaint: Dizziness Stated complaint: ILLNESS, LIGHTHEADED, Time Seen by Provider: 12/22/20 15:52 Source: patient and family Mode of arrival: EMS History of Present Illness Provider complaint: Syncopal episode x2 This 80-year-old female presents today by EMS, accompanied by her daughter. Patient was at home today and states she was quite active. She did have breakfast. She was washing her windows both inside and out today. She was also washing drapes etc. Patient states she did not stop for lunch. She did have an orange. Her daughter stop by to check on her this afternoon. Patient stated that she felt funny and needed to sit down. She had a syncopal episode in front of her daughter. The daughter states she was able to arouse the patient and she was conversive. The patient had a second syncopal episode. She did try to arouse her a second time, and states the patient was mumbling some incoherent speech. Patient then became more responsive. She complained repetitively that she felt hot. She denies any chest pain, shortness of breath, nausea, vomiting, or abdominal pain. No headache. Patient reportedly had a similar episode almost exactly 1 year ago, which was treated at home by putting her in a cold bathtub and giving her Gatorade. Patient states she feels fairly normal at this time. No neck or arm pain. No other complaints. Home Medications Medication Instructions Recorded Confirmed Type aspirin [Aspir-81] 81 mg PO HS 12/22/20 12/22/20 History azelastine [Astelin] 1 spray INTRANASAL BID 12/22/20 12/22/20 History cholecalciferol (vitamin D3) 25 mcg PO DAILY 12/22/20 12/22/20 History [Vitamin D3] hydrochlorothiazide 12.5 mg PO QAM 12/22/20 12/22/20 History losartan [Cozaar] 100 mg PO QAM 12/22/20 12/22/20 History metformin [Glucophage XR] 500 mg PO QDD 12/22/20 12/22/20 History metoprolol succinate [Toprol XL] 50 mg PO BID 12/22/20 12/22/20 History mometasone [Nasonex] 2 spray INTRANASAL DAILY PRN 12/22/20 12/22/20 History mometasone-formoterol [Dulera] 2 puff INHALATION BID 12/22/20 12/22/20 History multivitamin 1 tab PO QAM 12/22/20 12/22/20 History peg 400-propylene glycol [Systane 2 drp OPHTHALMIC (EYE) BID PRN 12/22/20 12/22/20 History (propylene glycol)] potassium chloride [Klor-Con M10] 10 meq PO QDB 12/22/20 12/22/20 History Allergies Allergy/AdvReac Type Severity Reaction Status Date / Time lisinopril Allergy Intermediate tongue Unverified 12/22/20 17:07 swelling Past Med/Surg History Medical History Aneurysm of ascending aorta Asthma CKD (chronic kidney disease) stage 3, GFR 30-59 ml/min HTN (hypertension) Type 2 diabetes mellitus Surgical History H/O: hysterectomy History of repair of hiatal hernia Family History Other Colorectal cancer Diabetes Hypertension Pulmonary embolism Social History Smoking Status: Never smoker Hx Alcohol Use: No Hx Substance Use: No Current Living Situation: Alone current occupational status: retired Feels Safe at Home: Yes Review of Systems A total of 10 systems reviewed and were otherwise negative Physical Exam Vital Signs Vital Signs - 24 hr 12/22/20 15:50 12/22/20 15:52 12/22/20 16:00 Temperature 36.9 C Temperature Source Oral Pulse Rate - Lying Pulse Rate - Sitting Pulse Rate - Standing Pulse Rate 65 68 Pulse Rate from SpO2 Sensor 53 L 62 63 Pulse Rhythm Regular Pulse Strength Normal Respiratory Rate 13 14 18 Respiratory Effort / Characteristics Non-Labored Respiratory Depth Normal Blood Pressure - Lying Blood Pressure - Sitting Blood Pressure- Standing Blood Pressure 142/65 H 142/65 H Blood Pressure Mean 90 90 Pulse Oximetry 97 87 L 95 Oxygen Delivery Method Room Air Sepsis Recent Fever Within 48 Hours No Sepsis New/Unexplained Change in Mental Status N/A Sepsis Action Taken by Nursing No Action Required 12/22/20 16:01 12/22/20 16:30 12/22/20 17:11 Temperature Temperature Source Pulse Rate - Lying Pulse Rate - Sitting Pulse Rate - Standing Pulse Rate Pulse Rate from SpO2 Sensor 67 68 Pulse Rhythm Pulse Strength Respiratory Rate 27 H 22 9 L Respiratory Effort / Characteristics Respiratory Depth Blood Pressure - Lying Blood Pressure - Sitting Blood Pressure- Standing Blood Pressure 167/81 H 145/101 H Blood Pressure Mean 109 115 Pulse Oximetry 97 95 Oxygen Delivery Method Sepsis Recent Fever Within 48 Hours Sepsis New/Unexplained Change in Mental Status Sepsis Action Taken by Nursing 12/22/20 17:30 12/22/20 17:31 12/22/20 18:00 Temperature Temperature Source Pulse Rate - Lying Pulse Rate - Sitting Pulse Rate - Standing Pulse Rate 70 70 72 Pulse Rate from SpO2 Sensor 69 71 70 Pulse Rhythm Pulse Strength Respiratory Rate 22 18 17 Respiratory Effort / Characteristics Respiratory Depth Blood Pressure - Lying Blood Pressure - Sitting Blood Pressure- Standing Blood Pressure 158/101 H 171/89 H Blood Pressure Mean 120 116 Pulse Oximetry 97 97 97 Oxygen Delivery Method Sepsis Recent Fever Within 48 Hours Sepsis New/Unexplained Change in Mental Status Sepsis Action Taken by Nursing 12/22/20 18:01 12/22/20 18:08 12/22/20 18:09 Temperature Temperature Source Pulse Rate - Lying Pulse Rate - Sitting Pulse Rate - Standing Pulse Rate 72 78 78 Pulse Rate from SpO2 Sensor 71 78 76 Pulse Rhythm Pulse Strength Respiratory Rate 14 15 27 H Respiratory Effort / Characteristics Respiratory Depth Blood Pressure - Lying Blood Pressure - Sitting Blood Pressure- Standing Blood Pressure 154/91 H 173/103 H Blood Pressure Mean 112 126 Pulse Oximetry 97 97 98 Oxygen Delivery Method Sepsis Recent Fever Within 48 Hours Sepsis New/Unexplained Change in Mental Status Sepsis Action Taken by Nursing 12/22/20 18:10 12/22/20 18:12 12/22/20 18:14 Temperature Temperature Source Pulse Rate - Lying 74 Pulse Rate - Sitting 71 Pulse Rate - Standing 79 Pulse Rate Pulse Rate from SpO2 Sensor Pulse Rhythm Pulse Strength Respiratory Rate Respiratory Effort / Characteristics Respiratory Depth Blood Pressure - Lying 154/91 H Blood Pressure - Sitting 173/103 H Blood Pressure- Standing 162/115 H Blood Pressure 162/115 H Blood Pressure Mean 130 Pulse Oximetry Oxygen Delivery Method Room Air Sepsis Recent Fever Within 48 Hours Sepsis New/Unexplained Change in Mental Status Sepsis Action Taken by Nursing General: Well-developed, well-nourished, elderly white female, in no acute distress. Laying on a bed. Alert and oriented. Conversive. Skin: Warm and dry with good turgor. No rashes or lesions. No ecchymosis or erythema. The patient is not diaphoretic. No abrasions. HEENT: Normocephalic atraumatic. Eyes PERRLA, EOMI. No conjunctiva or scleral injection. Ears TMs intact bilaterally with good light reflexes. No erythema or bulging. No hemotympanum. Canals are patent. Nares patent bilaterally without turbinate enlargement. No significant drainage. No epistaxis. Oropharynx without erythema or exudate. Uvula midline, oral mucosa moist. No lesions present. Heart: RRR, occasional premature beats. No MGR. Lungs: Lungs are clear to auscultation. No crackles rhonchi or wheezing. Good air movement. The patient is able to take a deep breath. Abdomen: Abdomen was inspected, auscultated, and palpated. Bowel sounds present x 4. Soft, nontender to palpation. No hepato-splenomegaly. No masses noted. No rebound. Musculoskeletal: Gross motor function of the upper and lower extremities is intact and unremarkable. Neurologic: Gross sensation is intact across the upper and lower extremities by soft touch. Medical Decision Making Differential Diagnosis Acute UT, electrolyte abnormality, cardiac arrhythmia, hypoglycemia, seizur Medical Records Attestation: I reviewed the patient's medical records. Home Medications Current Medication List: was personally reviewed by me Laboratory Data Attestation: I reviewed the patient's lab results. CBC, chemistry panel, CK/CK-MB, troponin, TSH, and COVID-19 swab were obtained. CBC is unremarkable. Renal panel shows a mild elevation in BUN and creatinine at 27 and 1.27. Sodium and potassium are normal. LFTs are unremarkable. Troponin normal at less than 0.015. CK/CK-MB are also normal. TSH is normal at 2.03. Result diagrams: 12/22/20 16:30 12/22/20 16:30 Lab Results 12/22/20 12/22/20 12/22/20 Range/Units 16:30 16:30 16:30 WBC 8.69 (4.8-10.8) K/uL RBC 4.73 (4.2-5.4) M/uL Hgb 14.6 (12.0-16.0) g/dL Hct 43.4 (37-47) % MCV 91.8 (80-100) fL MCH 30.9 (25-34) pg MCHC 33.6 (32-36) g/dL RDW Std Deviation 46.0 (36.4-46.3) fL RDW Coeff of Demario 13.7 (11.5-14.5) % Plt Count 179 (130-400) K/uL MPV 10.7 H (7.4-10.4) fL Immature Gran % (Auto) 0.5 % Neut % (Auto) 84.1 % Lymph % (Auto) 9.3 % Beltrami % (Auto) 5.1 % Eos % (Auto) 0.8 % Baso % (Auto) 0.2 % Neut # (Auto) 7.31 H (1.4-6.5) K/uL Lymph # (Auto) 0.81 L (1.2-3.4) K/uL Bel[place]ami # (Auto) 0.44 (0.11-0.59) K/uL Eos # (Auto) 0.07 (0-0.5) K/uL Baso # (Auto) 0.02 (0-0.2) K/uL Immature Gran # (Auto) 0.04 H (0.00-0.02) K/uL Sodium 140 (136-145) mmol/L Potassium 3.8 (3.5-5.1) mmol/L Chloride 106 (98-107) mmol/L Carbon Dioxide 28 (21-32) mmol/L Anion Gap 6.0 (3-11) BUN 27 H (7-18) mg/dl Creatinine 1.27 H (0.6-1.2) mg/dl Est Cr Clr Drug Dosing Not Reportable Est GFR ( Amer) 46.8 ml/min Est GFR (Non-Af Amer) 40.4 ml/min BUN/Creatinine Ratio 21.0 H (10-20) Glucose 116 H (70-99) mg/dl Calcium 9.3 (8.5-10.1) mg/dl Total Bilirubin 0.5 (0.2-1) mg/dl AST 15 (15-37) U/L ALT 17 (12-78) U/L Alkaline Phosphatase 98 (45-117) U/L Total Creatine Kinase 74 (26-192) U/L CK-MB (CK-2) 1.1 (0.5-3.6) ng/ml CK/CKMB % Calc 1.5 (0-3.0) Troponin I < 0.015 (0-0.045) ng/ml Total Protein 7.3 (6.4-8.2) gm/dl Albumin 3.7 (3.4-5.0) gm/dl Globulin 3.6 (2.5-4.0) gm/dl Albumin/Globulin Ratio 1.0 (0.9-2) TSH 2.030 (0.300-4.500) uIu/ml COVID-19 Eval Order Covid19 at [facility] SARS-CoV-2 (PCR) (Negative) 12/22/20 Range/Units 16:30 WBC (4.8-10.8) K/uL RBC (4.2-5.4) M/uL Hgb (12.0-16.0) g/dL Hct (37-47) % MCV (80-100) fL MCH (25-34) pg MCHC (32-36) g/dL RDW Std Deviation (36.4-46.3) fL RDW Coeff of Demario (11.5-14.5) % Plt Count (130-400) K/uL MPV (7.4-10.4) fL Immature Gran % (Auto) % Neut % (Auto) % Lymph % (Auto) % [place]ami % (Auto) % Eos % (Auto) % Baso % (Auto) % Neut # (Auto) (1.4-6.5) K/uL Lymph # (Auto) (1.2-3.4) K/uL [place]ami # (Auto) (0.11-0.59) K/uL Eos # (Auto) (0-0.5) K/uL Baso # (Auto) (0-0.2) K/uL Immature Gran # (Auto) (0.00-0.02) K/uL Sodium (136-145) mmol/L Potassium (3.5-5.1) mmol/L Chloride (98-107) mmol/L Carbon Dioxide (21-32) mmol/L Anion Gap (3-11) BUN (7-18) mg/dl Creatinine (0.6-1.2) mg/dl Est Cr Clr Drug Dosing Est GFR ( Amer) ml/min Est GFR (Non-Af Amer) ml/min BUN/Creatinine Ratio (10-20) Glucose (70-99) mg/dl Calcium (8.5-10.1) mg/dl Total Bilirubin (0.2-1) mg/dl AST (15-37) U/L ALT (12-78) U/L Alkaline Phosphatase (45-117) U/L Total Creatine Kinase (26-192) U/L CK-MB (CK-2) (0.5-3.6) ng/ml CK/CKMB % Calc (0-3.0) Troponin I (0-0.045) ng/ml Total Protein (6.4-8.2) gm/dl Albumin (3.4-5.0) gm/dl Globulin (2.5-4.0) gm/dl Albumin/Globulin Ratio (0.9-2) TSH (0.300-4.500) uIu/ml COVID-19 Eval Order SARS-CoV-2 (PCR) NEGATIVE (Negative) Imaging Data My Impression: Chest x-ray obtained today was reviewed by me and read by radiology. No active disease in the chest. No evidence of failure. Radiologist's Impression: Chest X-Ray 12/22/20 16:13 XR chest 2V PA/lateral CLINICAL HISTORY: syncope COMPARISON STUDY: 11/30/2014 FINDINGS: The heart is borderline enlarged. Normal. There is no evidence of focal pulmonary consolidation. There is no evidence of failure. No pleural effusions are visualized.[Degenerative changes are present within the dorsal spine. There is minor atelectasis at the level of the left cardiophrenic angle IMPRESSION: No active disease in the chest. ACT 112: Negative or not required by law. Electronically signed by: Lewis Pollock M.D. 12/22/2020 5:16 PM ECG Data Attestation: I personally reviewed and interpreted this ECG as follows: Indication: + syncope Additional Comments: EKG obtained today was reviewed with Dr. Morris. Rate of 60. Sinus rhythm with marked sinus arrhythmia. Minimal voltage criteria for LVH, may be normal variant. When compared to EKG from 2014, PVCs are no longer present. No acute ST or T wave changes. Blood Pressure Blood Pressure Findings: Elevated blood pressure MDM Narrative Patient was evaluated in room B6. IV was established. Patient was placed on the monitor. She remained stable while in the ED. EKG and chest x-ray were obtained. Chest x-ray is unremarkable. EKG shows sinus rhythm with sinus arrhythmia. Rate of 60. No acute changes. Patient history was obtained from her as well as her daughter. Labs show no significant abnormality other than mild elevation in her BUN and creatinine. She does not appear overly dry. Given her abnormal EKG, I do think her 2 syncopal episodes warrant further evaluation. [facility] [address] [facility] hospitalist will be contacted for admission. Please see that dictation for final management. She does not exhibit any stroke or seizure-like symptoms. There was no postictal phase. She has no unilateral weakness. Orthostatic blood pressure eval shows a significant change in systolic and diastolic pressures. Possibility of dehydration remains high. Care plan was discussed with Dr. Morris, who concurred with today's treatment plan. Impression & Plan Syncopal episodes Admission by the hospitalist service for observation and further work-up. This was discussed with the patient and her daughter, and they are in agreement. Discharge Plan Visit Data Chief Complaint: Dizziness Stated Complaint: ILLNESS, LIGHTHEADED, ED Provider: Abdelrahman Morris ED Midlevel Provider: Jason Gil Discharge Problem: Syncopal episodes Patient Disposition: Admitted As Inpatient Discharge Instructions Interventions: ED Discharge Assessment Last Done: 12/22/20 19:45 Discharge Problem: Syncopal episodes Qualifiers: Syncope type: unspecified Qualified Code(s): R55 - Syncope and collapse
--- NOTE | 2020-12-22 18:46 | History & Physical Report ---
Date of Service December 22, 2020 Assessment & Plan (1) Syncopal episodes: This is a 80yo F with a PMH of DM II, hypertension, history of aneurysm of ascending thoracic aorta, CKD 3, hyperlipidemia, asthma and other medical problems listed below who presents from home after 2 syncopal episodes. Likely vasovagal syncope in setting of heat, exertion Feeling back to baseline following fluids Does have history of ascending thoracic aorta monitored by cardiology annually, has been stable Will monitor on telemetry, obtain 2D echo to evaluate (due next month) CT head without intracranial abnormality Orthostatic vitals, telemetry, repeat lab work in AM Hold HCTZ for now (2) HTN (hypertension): Elevated in setting of stress- recheck once upstairs on the floor Continue Toprol BID, PRN IV hydralazine for SBP >170 Holding HCTZ and losartan for now until volume status and kidney function can be reassessed tomorrow (3) CKD (chronic kidney disease) stage 3, GFR 30-59 ml/min: Baseline Cr ~ 1.1. Mild elevation at 1.27 in setting of poor PO intake, diuretics Gentle IV fluids resuscitation Recheck BMP in AM (4) Aneurysm of ascending aorta: History of ascending thoracic aortic aneurysm stable at 4.6 cm, monitored by cardiology annually Obtain 2D echo while admitted (5) Type 2 diabetes mellitus: A1c of 6.3 in September 2020 Hold home agents SSI while in-patient BSG AC HS (6) Asthma: Symptoms at baseline. Continue Dulera inh, albuterol prn DVT Ppx: SQ heparin Code status: FULL PCP: Panda Dispo: Observation telemetry Patient seen in collaboration with Dr. Keating. Please see addendum. History of Present Illness Chief Complaint: syncopal episodes Primary Care Provider: Shaista Mosqueda, This is a 80yo F with a PMH of DM II, hypertension, history of aneurysm of ascending thoracic aorta, CKD 3, hyperlipidemia, asthma and other medical problems listed below who presents from home after 2 syncopal episodes. Patient was doing a lot of housework today including washing outdoor windows. Was also washing and rehanging drapes. Admits that this is a lot of physical exertion for her. Had a small breakfast and then ate a popsicle and orange for lunch. Modest fluid intake during this time. Sat down following these activities with daughter and then had 2 brief episodes of syncope where daughter described patient was unresponsive for a few seconds before coming to. Patient endorses feeling hot with some visual changes preceding event. Had some slurring of speech following second syncopal episode that resolved after 1 minute. Denies any focal neurological deficit, other speech or swallowing abnormalities. States something similar happened a year ago when family gave patient [place] instructed her to take an ice bath with complete resolution of symptoms. Currently feeling back to baseline except for overall feeling of fatigue. Denies any fever, chills, lightheadedness, visual changes, chest pain, palpitations, shortness of breath, nausea, vomiting, abdominal pain, dysuria, diarrhea or constipation. Does take hydrochlorothiazide for blood pressure. Allergies Allergy/AdvReac Type Severity Reaction Status Date / Time lisinopril Allergy Intermediate tongue Unverified 12/22/20 17:07 swelling Home Medications Medication Instructions Recorded Confirmed Type aspirin [Aspir-81] 81 mg PO HS 12/22/20 12/22/20 History azelastine [Astelin] 1 spray INTRANASAL BID 12/22/20 12/22/20 History cholecalciferol (vitamin D3) 25 mcg PO DAILY 12/22/20 12/22/20 History [Vitamin D3] hydrochlorothiazide 12.5 mg PO QAM 12/22/20 12/22/20 History losartan [Cozaar] 100 mg PO QAM 12/22/20 12/22/20 History metformin [Glucophage XR] 500 mg PO QDD 12/22/20 12/22/20 History metoprolol succinate [Toprol XL] 50 mg PO BID 12/22/20 12/22/20 History mometasone [Nasonex] 2 spray INTRANASAL DAILY PRN 12/22/20 12/22/20 History mometasone-formoterol [Dulera] 2 puff INHALATION BID 12/22/20 12/22/20 History multivitamin 1 tab PO QAM 12/22/20 12/22/20 History peg 400-propylene glycol [Systane 2 drp OPHTHALMIC (EYE) BID PRN 12/22/20 12/22/20 History (propylene glycol)] potassium chloride [Klor-Con M10] 10 meq PO QDB 12/22/20 12/22/20 History Past Med/Surg History Medical History Aneurysm of ascending aorta Asthma CKD (chronic kidney disease) stage 3, GFR 30-59 ml/min HTN (hypertension) Type 2 diabetes mellitus Surgical History H/O: hysterectomy History of repair of hiatal hernia Family History Other Colorectal cancer Diabetes Hypertension Pulmonary embolism Social History Smoking Status: Never smoker Hx Alcohol Use: No Hx Substance Use: No Preferred Language: Khmer Communication Ability: Effective [employer] Required: No Beliefs That Will Affect Care: None Current Living Situation: Alone current occupational status: retired Feels Safe at Home: Yes Safety Concerns: Afraid for Self Assistive Devices: Walker Review of Systems Review of Systems: At least ten systems reviewed and negative except as noted in the HPI. Physical Exam Physical Exam: General Appearance: WD/WN, vitals as above, NAD, sitting up in bed, pleasant, conversing easily Head: normocephalic, atraumatic Eyes: normal inspection, PERRL, conjunctivae normal, anicteric sclerae ENT: external ear and nose normal, oropharynx normal Neck: normal visual inspection, trachea midline, no thyromegaly Respiratory: normal respiratory effort, lungs clear to auscultation, no wheeze, rales, rhonchi. No accessory muscle use Cardiovascular: regular rate, rhythm, no murmur appreciated, normal peripheral pulses, no BLE edema. Vessels: no JVD Chest: normal inspection of chest Abdomen/GI: normal bowel sounds, soft, nontender, no hepatosplenomegaly Extremities/Musculoskeletal: no cyanosis or clubbing, extremities motor strength 5/5 Neurologic: PERRL, EOMI, accommodation nl, no face palsy, no dysarthria, CN's II-XI intact bilaterally and moves all extremities Psychiatric: A+Ox3, euthymic affect Skin: no rashes, normal color, warm/dry Results & Data Results & Data ([facility]) Vital Signs (Past 12 Hours) Vital Signs Temp Pulse Resp BP Pulse Ox 12/22/20 18:10 162/115 H 12/22/20 18:09 78 27 H 173/103 H 98 12/22/20 18:08 78 15 154/91 H 97 12/22/20 18:01 72 14 97 12/22/20 18:00 72 17 171/89 H 97 12/22/20 17:31 70 18 97 12/22/20 17:30 70 22 158/101 H 97 12/22/20 17:11 9 L 12/22/20 16:30 22 145/101 H 95 12/22/20 16:01 27 H 167/81 H 97 12/22/20 16:00 18 95 12/22/20 15:52 36.9 C 68 14 142/65 H 87 L 12/22/20 15:50 65 13 142/65 H 97 Laboratory Results Short CBC 12/22/20 Range/Units 16:30 WBC 8.69 (4.8-10.8) K/uL Hgb 14.6 (12.0-16.0) g/dL Hct 43.4 (37-47) % Plt Count 179 (130-400) K/uL BMP 12/22/20 16:30 Sodium 140 Potassium 3.8 Chloride 106 Carbon Dioxide 28 BUN 27 H Creatinine 1.27 H Glucose 116 H Calcium 9.3 Cardiac Enzymes 12/22/20 Range/Units 16:30 Total Creatine Kinase 74 (26-192) U/L CK-MB (CK-2) 1.1 (0.5-3.6) ng/ml Troponin I < 0.015 (0-0.045) ng/ml Liver Function 12/22/20 Range/Units 16:30 Total Bilirubin 0.5 (0.2-1) mg/dl AST 15 (15-37) U/L ALT 17 (12-78) U/L Alkaline Phosphatase 98 (45-117) U/L Albumin 3.7 (3.4-5.0) gm/dl Diagnostic Findings Chest X-Ray 12/22/20 16:13 XR chest 2V PA/lateral CLINICAL HISTORY: syncope COMPARISON STUDY: 11/30/2014 FINDINGS: The heart is borderline enlarged. Normal. There is no evidence of focal pulmonary consolidation. There is no evidence of failure. No pleural effusions are visualized.[Degenerative changes are present within the dorsal spine. There is minor atelectasis at the level of the left cardiophrenic angle IMPRESSION: No active disease in the chest. ACT 112: Negative or not required by law. Electronically signed by: Lewis Pollock M.D. 12/22/2020 5:16 PM Code Status & VTE Plan VTE Prophylaxis Plan VTE Prophylaxis will be ordered: Yes Supervising Physician Co-Signing Physician Notes Patient seen and examined, care coordinated with Asiya Villafana PA-C. This is 80-year-old female, admitted with syncope, dizzy spell, no loss of consciousness Patient was outside in hot temperatures trying to clean the windows, [place] dizzy and lightheaded In the ER after receiving IV fluids patient started to feel better, still complains of feeling warm, Temperature within normal limit, no hypothermia Vital stable, Mild elevation of BUN possible from the dehydration for being outside in hot temperature(more than 80F) Will be observed in telemetry to rule out any arrhythmia, CT head noncontrast done shows no acute change Gentle IV fluids, PT OT evaluation, Expected to be discharged home in next 24 to 48 hours if remains medically stable Christi Keating MD
[2020-12-22] MEDS ORDERED: ARTIFICIAL TEARS OP PRN (18:56)
--- NOTE | 2020-12-22 19:19 | CT Scan Report ---
CT head/brain wo con CLINICAL HISTORY: syncope COMPARISON STUDY: No previous studies for comparison. TECHNIQUE: Axial CT of the brain is performed from the vertex to the skull base. IV contrast was not administered for this examination. A dose lowering technique was utilized adhering to the principles of ALARA. CT DOSE: 1074.96 mGy.cm FINDINGS: No intra or extra-axial mass lesions are visualized. There is no CT evidence of acute cortical infarc tion. There is no evidence of midline shift. There is no acute hemorrhage. No calvarial fractures ar e visualized. There are patchy white matter hypodensities likely on a small vessel basis. There is no evidence of pathologic ventricular dilatation. There is no evidence of acute sinusitis IMPRESSION: No acute intracranial findings ACT 112: Negative or not required by law. Electronically signed by: Lewis Pollock M.D. 12/22/2020 7:17 PM
[2020-12-22] MEDS ORDERED: hydrALAZINE HCL 20 MG/ML VIAL IV PRN (19:24)
[2020-12-22] MEDS ORDERED: GLUCAGON FOR INJ 1 MG VIAL SQ PRN (19:52)
[2020-12-22] MEDS ORDERED: NITROGLYCERIN SL 0.4 MG/TAB TAB SL PRN (19:52)
[2020-12-22] MEDS ORDERED: DEXTROSE 50% 50 ML SYRINGE IV PRN (19:52)
[2020-12-22] MEDS ORDERED: GLUCOSE 40% GEL 15 GM TUBE PO PRN (19:52)
[2020-12-22] MEDS ORDERED: ONDANSETRON INJ 2 MG/ML 2 ML VIAL IV PRN (19:52)
[2020-12-22] MEDS ORDERED: MAGNESIUM HYDROXIDE SUSP 30 ML UDC PO PRN (19:52)
[2020-12-22] MEDS ORDERED: SODIUM CHLORIDE 0.9% 1000ML 1,000 ML IV SCH (19:52)
[2020-12-22] MEDS ORDERED: CARBOHYDRATES FOR HYPOGLYCEMIA PO PRN (19:52)
[2020-12-22] MEDS ORDERED: GLUCOSE 10 TABS/TUBE PO PRN (19:52)
[2020-12-22] MEDS ORDERED: POLYETHYLENE (MIRALAX) 17 GM PACK PO PRN (19:52)
[2020-12-22] MEDS ORDERED: ALUMINUM/MAGNESIUM SUSP 30 ML UDC PO PRN (19:52)
[2020-12-22] MEDS: ASPIRIN 81 MG ECTAB PO SCH (20:37)
[2020-12-22] MEDS: METOPROLOL SUCC 50MG EXT REL TAB PO SCH (20:38)
[2020-12-22 21:16] LABS: Appearance Urine Clear (Clear); Bilirubin Urine Negative (Negative); Blood Urine Negative (Negative); Color Urine Yellow; Glucose Urine UA Negative (Negative); Ketones Urine Negative (Negative); Leukocyte Esterase Urine Negative (Negative); Nitrite Urine Negative (Negative); Protein Urine Negative (Negative); Specific Gravity Urine 1.018 (1.000-1.030); Urobilinogen Urine Negative (Negative)
[2020-12-22] MEDS: INSULIN ASPART 100 UNITS/ML 3 ML PEN SC SCH (21:24)
[2020-12-22] MEDS: HEPARIN SOD 5,000 UNIT/0.5 ML VIAL SQ SCH (21:35)
[2020-12-23] MEDS: HEPARIN SOD 5,000 UNIT/0.5 ML VIAL SQ SCH ×3 (05:52→21:01)
[2020-12-23 06:33] LABS: BUN Creatinine Ratio 23.5 (10-20); Calcium 8.6 mg/dl (8.5-10.1); Creatinine Clr Calc Pharmacy 59.2 ml/min; Est GFR (African American) 72.9 ml/min; Est GFR (Non-African American) 62.9 ml/min; Potassium 3.4 mmol/L (3.5-5.1)
[2020-12-23] MEDS: INSULIN ASPART 100 UNITS/ML 3 ML PEN SC SCH ×4 (08:06→20:55)
[2020-12-23] MEDS: POTASSIUM CHLORIDE 10 MEQ TABCR PO SCH (08:07)
[2020-12-23] MEDS: CHOLECALCIFEROL 1,000 UNITS 25 MCG TAB PO SCH (08:08)
[2020-12-23] MEDS: MULTIVITAMIN TAB PO SCH (08:08)
[2020-12-23] MEDS: METOPROLOL SUCC 50MG EXT REL TAB PO SCH ×2 (08:08→21:00)
[2020-12-23] MEDS ORDERED: hydroCHLOROthiazide 25 MG TAB PO SCH (09:00)
[2020-12-23] MEDS ORDERED: POTASSIUM CHLORIDE 10 MEQ TABCR PO STA (12:26)
[2020-12-23] MEDS: ACETAMINOPHEN 325 MG TAB PO PRN (15:49)
[2020-12-23] MEDS: ASPIRIN 81 MG ECTAB PO SCH (21:01)
[2020-12-24] MEDS: HEPARIN SOD 5,000 UNIT/0.5 ML VIAL SQ SCH ×2 (05:11→13:36)
[2020-12-24] MEDS: CHOLECALCIFEROL 1,000 UNITS 25 MCG TAB PO SCH (07:57)
[2020-12-24] MEDS: INSULIN ASPART 100 UNITS/ML 3 ML PEN SC SCH ×2 (07:57→12:04)
[2020-12-24] MEDS: POTASSIUM CHLORIDE 10 MEQ TABCR PO SCH (07:57)
[2020-12-24] MEDS: MULTIVITAMIN TAB PO SCH (07:57)
[2020-12-24] MEDS: ACETAMINOPHEN 325 MG TAB PO PRN (08:01)
[2020-12-24] MEDS: METOPROLOL SUCC 50MG EXT REL TAB PO SCH (08:04)
--- NOTE | 2020-12-24 12:28 | Hospitalist Progress Note ---
Date of Service Late entry patient was seen on December 23 around 4 PM December 23, 2020 Patient was seen on December 23, 2020Thursday at 4 PM Assessment & Plan (1) Syncopal episodes: This is a 80yo F with a PMH of DM II, hypertension, history of aneurysm of ascending thoracic aorta, CKD 3, hyperlipidemia, asthma and other medical problems listed below who presents from home after 2 syncopal episodes. Likely vasovagal syncope in setting of heat, exertion Feeling back to baseline following fluids Telemetry does not show any evidence of arrhythmia Does have history of ascending thoracic aorta monitored by cardiology annually, has been stable Will monitor on telemetry, obtain 2D echo to evaluate (due next month) CT head without intracranial abnormality Echo shows normal LV function EF 60 to 65%, Moderate concentric left ventricular hypertrophy (2) HTN (hypertension): Blood pressure improved, outpatient meds HCTZ Toprol resumed (3) CKD (chronic kidney disease) stage 3, GFR 30-59 ml/min: Acute renal failure on CKD stage III: Creatinine 1.27 on admission due to poor p.o. intake, working outside in the hot humid weather, Takes diuretics chronically for blood pressure control Renal failure resolved, creatinine improved to baseline after IV fluids Patient is encouraged to drink more p.o. fluids at home during the summer (4) Aneurysm of ascending aorta: History of ascending thoracic aortic aneurysm stable at 4.6 cm, monitored by cardiology annually (5) Type 2 diabetes mellitus: A1c of 6.3 in September 2020 Hold home agents SSI while in-patient BSG AC HS (6) Asthma: Symptoms at baseline. Continue Dulera inh, albuterol prn DVT Ppx: SQ heparin Code status: FULL PCP: Panda Dispo: Plan to discharge home tomorrow Admission and Anticipated Discharge Date Admission Date: December 22, 2020 Subjective Feels much better today, no dizzy spell or lightheadedness, [place] her face a little bit puffy, explained that she received IV fluids, does not have any pain or discomfort No shortness of breath or paresthesia Walking on hallway independently, Vitals been stable Review of Systems Review of Systems: All systems reviewed & are unremarkable except as noted in Subjective Physical Exam Physical Exam: Physical exam: General: No acute distress, alert awake oriented x3 HEENT: PERRLA, EOMI, Heart: Regular S1-S2, no carotid bruit, no JVD, no lower extremity edema Lungs: Clear to auscultate, no wheeze or rales Abdomen: Soft nontender, no organomegaly Extremity: No cyanosis, no deformity, normal strength 5 out of 5 with upper and lower Neuro: No focal neurological deficit normal speech, normal visual field, Motor strength : normal both upper and lower extremity, sensation intact Psych: Alert awake oriented x3, normal affect Results & Data Results & Data ([facility]) Vital Signs (Past 12 Hours) Vital Signs Temp Pulse Pulse Resp BP Pulse Ox 12/24/20 11:24 36.6 C 49 L 16 142/89 H 93 12/24/20 07:19 36.6 C 44 L 16 154/77 H 94 12/24/20 06:57 51 L 12/24/20 04:00 36.5 C 61 18 154/61 H 96 12/24/20 03:12 54 L 15 96 (1) Syncopal episodes Syncope type: unspecified Qualified Code(s): R55 - Syncope and collapse
--- NOTE | 2020-12-24 13:42 | Discharge Summary ---
Date of Service December 24, 2020 Admission HPI Per Admitting Provider This is a 80yo F with a PMH of DM II, hypertension, history of aneurysm of ascending thoracic aorta, CKD 3, hyperlipidemia, asthma and other medical problems listed below who presents from home after 2 syncopal episodes. Patient was doing a lot of housework today including washing outdoor windows. Was also washing and rehanging drapes. Admits that this is a lot of physical exertion for her. Had a small breakfast and then ate a popsicle and orange for lunch. Modest fluid intake during this time. Sat down following these activities with daughter and then had 2 brief episodes of syncope where daughter described patient was unresponsive for a few seconds before coming to. Patient endorses feeling hot with some visual changes preceding event. Had some slurring of speech following second syncopal episode that resolved after 1 minute. Denies any focal neurological deficit, other speech or swallowing abnormalities. States something similar happened a year ago when family gave patient [place] instructed her to take an ice bath with complete resolution of symptoms. Currently feeling back to baseline except for overall feeling of fatigue. Denies any fever, chills, lightheadedness, visual changes, chest pain, palpitations, shortness of breath, nausea, vomiting, abdominal pain, dysuria, diarrhea or constipation. Does take hydrochlorothiazide for blood pressure. Principal Diagnosis Dizzy spell/lightheadedness Dehydration Acute renal failure: Resolved Discharge Exam Physical exam: General: No acute distress, alert awake oriented x3 HEENT: PERRLA, EOMI, Heart: Regular S1-S2, no carotid bruit, no JVD, no lower extremity edema Lungs: Clear to auscultate, no wheeze or rales Abdomen: Soft nontender, no organomegaly Extremity: No cyanosis, no deformity, normal strength 5 out of 5 with upper and lower Neuro: No focal neurological deficit normal speech, normal visual field, Motor strength : normal both upper and lower extremity, sensation intact Psych: Alert awake oriented x3, normal affect Discharge Data Allergies Allergy/AdvReac Type Severity Reaction Status Date / Time lisinopril Allergy Intermediate tongue Unverified 12/22/20 17:07 swelling Consultations 12/22/20 18:09 ED Decision to Admit Stat Ordered Studies 12/22/20 18:34 CT head/brain wo con Stat Hospital Course (1) Syncopal episodes: This is a 80yo F with a PMH of DM II, hypertension, history of aneurysm of ascending thoracic aorta, CKD 3, hyperlipidemia, asthma and other medical problems listed below who presents from home after 2 syncopal episodes. Likely vasovagal syncope in setting of heat, exertion Feeling back to baseline following fluids Telemetry does not show any evidence of arrhythmia Does have history of ascending thoracic aorta monitored by cardiology annually, has been stable Will monitor on telemetry, obtain 2D echo to evaluate (due next month) CT head without intracranial abnormality Echo shows normal LV function EF 60 to 65%, Moderate concentric left ventricular hypertrophy Patient has no other complaints stable to be discharged home today, update given to patient's daughter (2) HTN (hypertension): Blood pressure improved, outpatient meds HCTZ Toprol resumed (3) CKD (chronic kidney disease) stage 3, GFR 30-59 ml/min: Acute renal failure on CKD stage III: Creatinine 1.27 on admission due to poor p.o. intake, working outside in the hot humid weather, Takes diuretics chronically for blood pressure control Renal failure resolved, creatinine improved to baseline after IV fluids Patient is encouraged to drink more p.o. fluids at home during the summer (4) Aneurysm of ascending aorta: History of ascending thoracic aortic aneurysm stable at 4.6 cm, monitored by cardiology annually (5) Type 2 diabetes mellitus: A1c of 6.3 in September 2020 Hold home agents SSI while in-patient BSG AC HS (6) Asthma: Symptoms at baseline. Continue Dulera inh, albuterol prn DVT Ppx: SQ heparin Code status: FULL PCP: Panda Dispo: Patient is discharged home today Total Time Total Time Spent Total Time Spent (In Minutes): 35 minutes Total Time Includes: Discharge Planning and Medication Reconciliation Discharge Plan Discharge Items Patient Disposition: Home - Self-Care Reason For Visit: SYNCOPE Discharge Diagnosis: Dizzy spell/lightheadedness Dehydration Acute renal failure: Resolved Activity: Resume your previous activity Non-emergency contact: Primary Care Provider Call non-emergency contact if: you have any medication questions Follow-up/Referrals: Shaista Mosqueda DO [Primary Care Provider] - (Date & Time 01/01/2021 8:00 AM Provider Moises Valdovinos III, MD Department [facility] ) Diet: Heart Healthy Addtl Attending Provider Instructions: Please take all medications as instructed on discharge list below. It is recommended that you follow-up with your primary care physician within 1-2 weeks of hospital discharge to ensure you are still doing well. Please call if you have any questions or problems. You can reach a [facility] hospitalist on duty at [facility] 24 hours a day by calling [phone] [facility] Parking Patroller Provider Instructions: Please continue to drink plenty of fluids Avoid strenuous activity outside when temperature is extremely hot, Pending Studies at Discharge: No Stand-Alone Forms: My [facility], Smoking Cessation Medications and DC Order Prescriptions: Continued multivitamin Tablet 1 tab PO QAM RF: 0 metoprolol succinate [Toprol XL] 50 mg tablet extended release 24 hr 50 mg PO BID RF: 0 aspirin 81 mg Tablet,Delayed Release (Dr/Ec) 81 mg PO HS RF: 0 hydrochlorothiazide 12.5 mg capsule 12.5 mg PO QAM RF: 0 losartan [Cozaar] 100 mg tablet 100 mg PO QAM RF: 0 metformin [Glucophage XR] 500 mg tablet extended release 24 hr 500 mg PO QDD RF: 0 Systane (propylene glycol) 0.4-0.3 % Drops 2 drp OPHTHALMIC (EYE) BID PRN (Reason: Allergy Symptoms) RF: 0 potassium chloride [Klor-Con M10] 10 mEq tablet,ER particles/crystals 10 meq PO QDB RF: 0 Dulera 100-5 mcg/actuation HFA aerosol inhaler 2 puff INHALATION BID RF: 0 mometasone [Nasonex] 50 mcg/actuation [place],Non-Aerosol 2 spray INTRANASAL DAILY PRN (Reason: Allergic Symptoms) RF: 0 azelastine 137 mcg (0.1 %) Aerosol,[employer] [place] 1 spray INTRANASAL BID RF: 0 cholecalciferol (vitamin D3) [Vitamin D3] 25 mcg (1,000 unit) Tablet 25 mcg PO DAILY RF: 0 Discharge Orders: Discharge Order (Routine); Ordered 12/24/20 Ordered By: Christi Barrientos/Other Patient Handouts: Causes of Syncope, Dizziness Fainting Poss Causes Admission Data Admit Date/Time: 12/22/20 18:28 Attending Provider: Christi Keating Admit Provider: Christi Keating Primary Care Provider: Shaista Mosqueda Other Providers: Christi Keating Other Interventions: Discharge Summary Assessment (RN) Last Done: 12/24/20 12:46
--- NOTE | 2020-12-24 13:43 | Electrocardiogram Report ---
Test Reason : Blood Pressure : / mmHG Vent. Rate : 060 BPM Atrial Rate : 060 BPM P-R Int : 164 ms QRS Dur : 090 ms QT Int : 468 ms P-R-T Axes : 005 -15 008 degrees QTc Int : 468 ms Sinus rhythm with marked sinus arrhythmia Minimal voltage criteria for LVH, may be normal variant Possible Anterior infarct , age undetermined Abnormal ECG When compared with ECG of 30-NOV-2014 07:42, Premature ventricular complexes are no longer Present Confirmed by Alexandro Olivares ([id number]) on 12/24/2020 1:43:25 PM Referred By: REFERRED SELF Confirmed By:Alexandro Olivares
== END 2020-12-24 14:10 | disposition home or self-care (01) ==
LOC: ED 15:43 → 2N 15:43